=== PATIENT | male | born 1940 | race Caucasian/White ===

== ENCOUNTER 2018-04-26 09:54 | Inpatient (IN) | payer MEDICARE, MEDICAID, OTHER ==
[~2018-04-26] VITALS: Ht 177.8 cm; Wt 67.7 kg
[2018-04-26 11:15] LABS: BASOPHILS % (AUTO) 0.7 % (0-1); EOSINOPHILS # (AUTO) 0.1 X10'3 (0-0.9); HEMATOCRIT 42.7 % (42.0-52.0); LYMPHOCYTES # (AUTO) 1.1 X10'3 (1.1-4.8); LYMPHOCYTES % (AUTO) 21.1 % (21-51); MEAN CORPUSCULAR HEMOGLOBIN 28.1 PG (27.0-31.0); MEAN CORPUSCULAR HGB CONC 32.7 % (33.0-36.5); MEAN CORPUSCULAR VOLUME 86.1 FL (78-98); MEAN PLATELET VOLUME 10.1 FL (7.4-10.4); MONOCYTES # (AUTO) 0.5 X10'3 (0-0.9); MONOCYTES % (AUTO) 8.9 % (2-12); NEUTROPHILS # (AUTO) 3.6 X10'3 (1.8-7.7); NEUTROPHILS % (AUTO) 67.3 % (42-75); PLATELET COUNT 210 X10'3 (140-440); RED BLOOD COUNT 4.96 X10'6 (4.70-6.10); RED CELL DISTRIBUTION WIDTH 16.7 % (11.5-14.5); WHITE BLOOD COUNT 5.4 X10'3 (4.5-11.0)
[2018-04-26 11:25] LABS: ALANINE AMINOTRANSFERASE 37 U/L (12-78); ALBUMIN/GLOBULIN RATIO 1.2 (1.1-1.5); ALKALINE PHOSPHATASE 81 IU/L (46-116); ANION GAP 12 (8-16); ASPARTATE AMINO TRANSFERASE 21 U/L (10-37); BLOOD UREA NITROGEN 15 MG/DL (7-18); BUN/CREATININE RATIO 12.9 (5.4-32.0); CALCIUM 9.3 MG/DL (8.5-10.1); CHLORIDE 97 MMOL/L (99-107); CREATININE 1.16 MG/DL (0.60-1.10); GLUCOSE 95 MG/DL (70-104); SODIUM 134 MMOL/L (135-145); TOTAL CARBON DIOXIDE 25.1 MMOL/L (24-32); TOTAL PROTEIN 7.4 G/DL (6.4-8.2); eGFR 61 ML/MIN
[2018-04-26] MEDS ORDERED: enoxaparin 100mg/ml syringe SUBCUT ONE (11:25)
[2018-04-26 11:31] LABS: INR 1.1 INR; PARTIAL THROMBOPLASTIN TIME 29 SECONDS (22-32); PROTHROMBIN TIME 11.4 SECONDS (9.0-12.0)
[2018-04-26] MEDS ORDERED: diltiazem 5mg/ml 5ml inj. IV ONE (11:40)
[2018-04-26] MEDS ORDERED: furosemide 10 MG/1 ML 10ml inj IV ONE (11:40)
[2018-04-26] MEDS ORDERED: HYDROcodone/acetaminophen 5mg/325mg tablet PO PRN (12:00)
[2018-04-26] MEDS ORDERED: morphine 2 MG/ML inj. syringe IV PRN (12:00)
[2018-04-26] MEDS ORDERED: mag hydrox/Alum hydrox/simeth 30ml oral suspension PO PRN (12:00)
[2018-04-26] MEDS ORDERED: acetaminophen 325mg tablet PO PRN (12:00)
[2018-04-26] MEDS ORDERED: magnesium hydroxide 30ml (MOM) UD suspension PO PRN (12:00)
[2018-04-26] MEDS ORDERED: ondansetron/PF 4mg/2ml inj IV PRN (12:00)
[2018-04-26] MEDS: metoprolol succinate 25mg (24-HOUR) SR. Tablet PO SCH (12:05)
[2018-04-26 12:31] LABS: HEMOGLOBIN A1C 6.8 % (4.5-6.2)
[2018-04-26] MEDS: furosemide 40mg/4ml inj IV SCH (15:05)
[2018-04-26] MEDS ORDERED: NO HOME MEDS (16:24)
[2018-04-26 18:45] VITALS: BP 125/65
[2018-04-26 22:00] VITALS: BP 120/75
[2018-04-27 02:00] VITALS: BP 161/91
[2018-04-27 05:52] LABS: BASOPHILS % (AUTO) 0.5 % (0-1); EOSINOPHILS # (AUTO) 0.1 X10'3 (0-0.9); EOSINOPHILS % (AUTO) 2.1 % (0-6); HEMATOCRIT 42.4 % (42.0-52.0); HEMOGLOBIN 13.8 g/dl (14.0-17.9); LYMPHOCYTES # (AUTO) 1.3 X10'3 (1.1-4.8); MEAN CORPUSCULAR HEMOGLOBIN 28.1 PG (27.0-31.0); MEAN CORPUSCULAR HGB CONC 32.6 % (33.0-36.5); MEAN CORPUSCULAR VOLUME 86.3 FL (78-98); MEAN PLATELET VOLUME 9.5 FL (7.4-10.4); MONOCYTES # (AUTO) 0.6 X10'3 (0-0.9); NEUTROPHILS # (AUTO) 3.2 X10'3 (1.8-7.7); NEUTROPHILS % (AUTO) 61.4 % (42-75); PLATELET COUNT 193 X10'3 (140-440); RED BLOOD COUNT 4.91 X10'6 (4.70-6.10); RED CELL DISTRIBUTION WIDTH 16.3 % (11.5-14.5); WHITE BLOOD COUNT 5.2 X10'3 (4.5-11.0)
[2018-04-27 06:00] VITALS: BP 106/62
[2018-04-27 06:13] LABS: ALBUMIN 3.7 G/DL (3.4-5.0); ANION GAP 13 (8-16); BLOOD UREA NITROGEN 16 MG/DL (7-18); BUN/CREATININE RATIO 12.8 (5.4-32.0); CALCIUM 9.1 MG/DL (8.5-10.1); CHLORIDE 97 MMOL/L (99-107); CHOL/HDL RATIO 4.6 (0.00-4.99); CHOLESTEROL 147 MG/DL (0-200); CREATININE 1.25 MG/DL (0.60-1.10); GLUCOSE 66 MG/DL (70-104); HDL CHOLESTEROL 32 MG/DL (35-60); LDL CHOLESTEROL 97 MG/DL (50-100); POTASSIUM 4.5 MMOL/L (3.5-5.1); SODIUM 137 MMOL/L (135-145); TOTAL CARBON DIOXIDE 27.5 MMOL/L (24-32); TRIGLYCERIDES 90 MG/DL (20-135); eGFR 56 ML/MIN
[2018-04-27] MEDS ORDERED: enoxaparin 40mg/0.4ml syringe SUBCUT SCH (08:00)
[2018-04-27] MEDS: furosemide 40mg/4ml inj IV SCH (08:12)
[2018-04-27] MEDS: metoprolol succinate 25mg (24-HOUR) SR. Tablet PO SCH (08:12)
[2018-04-27 11:00] VITALS: BP 103/56
[2018-04-27] MEDS ORDERED: insulin Lispro (HumaLOG) vial - multi-dose SQ SCH (11:50)
[2018-04-27] MEDS ORDERED: MESSAGE TO PHARMACY PO ONE (11:50)
[2018-04-27] MEDS ORDERED: dextrose 50%-water 50ml dispensing syringe IV PRN ×2 (11:50)
[2018-04-27] MEDS ORDERED: glucagon, human recombinant 1mg kit SUBCUT PRN (11:50)
[2018-04-27] MEDS ORDERED: dextrose ORAL solution 15 GM/59 ML bottle PO PRN ×2 (11:50)
[2018-04-27] MEDS: aspirin 81mg tablet.DR PO SCH (12:01)
[2018-04-27 15:00] VITALS: BP 109/59
[2018-04-27 19:00] VITALS: BP 116/66
[2018-04-27] MEDS: lisinopril 5mg tablet PO SCH (20:34)
[2018-04-27] MEDS: furosemide 20 MG/2 ML vial IV SCH (20:34)
[2018-04-27] MEDS: apixaban 5mg tablet PO SCH (20:35)
[2018-04-27 23:00] VITALS: BP 115/67
[2018-04-28 03:00] VITALS: BP 105/67
[2018-04-28 05:11] LABS: BASOPHILS # (AUTO) 0.1 X10'3 (0-0.2); BASOPHILS % (AUTO) 1.9 % (0-1); EOSINOPHILS # (AUTO) 0.1 X10'3 (0-0.9); EOSINOPHILS % (AUTO) 2.2 % (0-6); HEMATOCRIT 42.5 % (42.0-52.0); HEMOGLOBIN 13.8 g/dl (14.0-17.9); LYMPHOCYTES # (AUTO) 1.3 X10'3 (1.1-4.8); LYMPHOCYTES % (AUTO) 21.3 % (21-51); MEAN CORPUSCULAR HEMOGLOBIN 27.9 PG (27.0-31.0); MEAN CORPUSCULAR HGB CONC 32.4 % (33.0-36.5); MEAN CORPUSCULAR VOLUME 86.1 FL (78-98); MEAN PLATELET VOLUME 9.4 FL (7.4-10.4); MONOCYTES # (AUTO) 0.8 X10'3 (0-0.9); MONOCYTES % (AUTO) 12.5 % (2-12); NEUTROPHILS # (AUTO) 3.8 X10'3 (1.8-7.7); NEUTROPHILS % (AUTO) 62.1 % (42-75); PLATELET COUNT 186 X10'3 (140-440); RED BLOOD COUNT 4.94 X10'6 (4.70-6.10); RED CELL DISTRIBUTION WIDTH 16.4 % (11.5-14.5)
[2018-04-28 05:37] LABS: ALBUMIN 3.6 G/DL (3.4-5.0); ANION GAP 11 (8-16); BLOOD UREA NITROGEN 20 MG/DL (7-18); BUN/CREATININE RATIO 15.2 (5.4-32.0); CALCIUM 9.2 MG/DL (8.5-10.1); CHLORIDE 95 MMOL/L (99-107); CREATININE 1.32 MG/DL (0.60-1.10); GLUCOSE 99 MG/DL (70-104); POTASSIUM 4.2 MMOL/L (3.5-5.1); SODIUM 136 MMOL/L (135-145); TOTAL CARBON DIOXIDE 29.8 MMOL/L (24-32); eGFR 53 ML/MIN
[2018-04-28] MEDS: lisinopril 5mg tablet PO SCH (08:14)
[2018-04-28] MEDS: furosemide 20 MG/2 ML vial IV SCH (08:14)
[2018-04-28] MEDS: apixaban 5mg tablet PO SCH (08:14)
[2018-04-28] MEDS: aspirin 81mg tablet.DR PO SCH (08:14)
[2018-04-28] MEDS: metoprolol succinate 25mg (24-HOUR) SR. Tablet PO SCH (08:14)
[2018-04-28] MEDS ORDERED: ASPI-1071 PO (09:34)
[2018-04-28] MEDS ORDERED: FURO-150 PO (09:34)
[2018-04-28] MEDS ORDERED: LISI-642 PO (09:34)
[2018-04-28] MEDS ORDERED: APIX5TAB3 PO (09:34)
[2018-04-28] MEDS ORDERED: METO-395 PO (09:34)
== END 2018-04-28 13:04 | disposition home or self-care (01) | DRG 308 ==
LOC: ER 09:55 → ED HOLD 11:58 → PCU 3S 18:44
PROVIDERS: ADMIT Internal Medicine; ATTEND Internal Medicine
DX: I48.0 Paroxysmal atrial fibrillation (principal); I50.21 Acute systolic (congestive) heart failure; E11.9 Type 2 diabetes mellitus without complications; Z60.2 Problems related to living alone; F40.240 Claustrophobia; Z79.899 Other long term (current) drug therapy; Z79.01 Long term (current) use of anticoagulants; Z82.49 Family history of ischemic heart disease and other diseases of the circulatory system
CPT/HCPCS: 36415; 71045; 80048; 80053; 80061; 82948; 83036; 83880; 84484; 85025; 85610; 85730; 87070; 93005; 93306; 96372; 96374; 96375; 99285; G0378; J1650; J1940; J3490